=== PATIENT | male | born 1980 | race Two or more races ===

== ENCOUNTER 2019-03-06 10:42 | Emergency (ER) | payer BC ==
[~2019-03-06] VITALS: Ht 182.9 cm; Wt 98.0 kg
[2019-03-06 12:00] LABS: Basophils # (auto) 0.1 uL; Basophils % (auto) 0.5 % (0.0-2.0); Eosinophils # (auto) 0 uL; Eosinophils % (auto) 0.1 % (0.0-7.0); Hematocrit 51.1 % (41.0-53.0); Hemoglobin 17.2 g/dL (13.5-17.5); Lymphocytes # (auto) 1.4 uL; Lymphocytes % (auto) 10.6 % (10.0-50.0); Mean Corpuscular Hemoglobin 31.3 pg (28.0-32.0); Mean Corpuscular Hgb Conc. 33.7 g/dL (32.0-36.0); Mean Corpuscular Volume 93.1 fL (80.0-100.0); Monocytes # (auto) 0.9 uL; Monocytes % (auto) 6.6 % (0.0-12.0); Neutrophils # (auto) 11.2 uL; Neutrophils % (auto) 82.2 % (37.0-80.0); Nucleated Red Blood Cells % 0.1 %; Platelet Count (auto) 360 10^3/uL (140-450); Red Blood Cells 5.48 10^6/uL (4.5-5.90); White Blood Cell 13.6 10^3/uL (4.4-10.8)
[2019-03-06 12:06] LABS: Albumin 4.6 g/dL (3.4-5.0); Calcium 9.5 mg/dL (8.5-10.1); Potassium 4.4 mmol/L (3.5-5.1)
[2019-03-06 12:09] LABS: Total Protein 8.7 g/dL (6.4-8.2)
[2019-03-06] MEDS ORDERED: cloNIDine HCL 0.1 MG TAB PO ONE (12:30)
[2019-03-06] MEDS ORDERED: KETOROLAC TROMETH 60MG/2ML VIAL IM ONE (12:30)
[2019-03-06] MEDS ORDERED: ONDANSETRON ODT 4 MG TAB PO ONE (16:45)
[2019-03-06 18:21] VITALS: BP 134/87
== END 2019-03-06 18:21 | disposition home or self-care (01) ==
LOC: ER 10:42
DX: I10 Essential (primary) hypertension (principal); J40 Bronchitis, not specified as acute or chronic
CPT/HCPCS: 36415; 70450; 71046; 80053; 85025; 96372; 99284; J1885; Q0162

== ENCOUNTER 2020-01-23 12:43 | Inpatient (IN) | payer BC ==
[~2020-01-23] VITALS: Ht 180.3 cm; Wt 91.8 kg
[2020-01-23] MEDS ORDERED: SODIUM CHLORIDE 0.9% 1,000 ML IVB ONE ×2 (13:37→14:38)
[2020-01-23] MEDS ORDERED: KETOROLAC TROMETH 30 MG/ML 1ML VIAL IV ONE (13:45)
[2020-01-23] MEDS ORDERED: ONDANSETRON HCL 4 MG/2 ML VIAL IV ONE (13:45)
[2020-01-23 14:14] LABS: Basophils # (auto) 0.1 10 ^3/uL (0-0.2); Basophils % (auto) 0.3 % (0.0-2.0); Eosinophils # (auto) 0 10 ^3/uL (0-0.8); Eosinophils % (auto) 0.1 % (0.0-7.0); Hemoglobin 16.4 g/dL (13.5-17.5); Lymphocytes # (auto) 1.1 10 ^3/uL (0.4-5.4); Lymphocytes % (auto) 5.8 % (10.0-50.0); Mean Corpuscular Hemoglobin 31.2 pg (28.0-32.0); Mean Corpuscular Hgb Conc. 33.5 g/dL (32.0-36.0); Mean Corpuscular Volume 93.1 fL (80.0-100.0); Monocytes # (auto) 1.2 10 ^3/uL (0-1.3); Monocytes % (auto) 6.2 % (0.0-12.0); Neutrophils # (auto) 17.1 10 ^3/uL (1.6-8.6); Neutrophils % (auto) 87.6 % (37.0-80.0); Platelet Count (auto) 318 10^3/uL (140-450); Red Blood Cells 5.27 10^6/uL (4.5-5.90); White Blood Cell 19.5 10^3/uL (4.4-10.8)
[2020-01-23 14:25] LABS: Urine Bacteria FEW /hpf (None Seen); Urine Blood 3+ /uL (Negative); Urine Mucus FEW (None Seen); Urine Specific Gravity 1.026 (1.001-1.035); Urine WBC 42 /hpf (0 - 3)
[2020-01-23 14:39] LABS: Potassium 3.6 mmol/L (3.5-5.1)
[2020-01-23 14:41] LABS: BUN/Creatinine Ratio 15.4
[2020-01-23 14:44] LABS: Bilirubin, Total 1.5 mg/dL (0.2-1.0); Total Protein 8.4 g/dL (6.4-8.2)
[2020-01-23] MEDS ORDERED: cefTRIAXone 1GM/50ML D5W 50 ML IV ONE (14:45)
[2020-01-23] MEDS ORDERED: MORPHINE SULF INJ 2 MG/ML SYRINGE 1ML IV PRN (18:30)
[2020-01-23] MEDS ORDERED: NITROGLYCERIN 0.4 MG SL TAB SL PRN (18:30)
[2020-01-23 19:47] VITALS: BP 150/94
--- NOTE | 2020-01-23 19:47 | NUR ---
Telemetry admit from ER KELLEN TALLEY admitted to Telemetry unit after SBAR received. Patient oriented to Cindy ash RN, unit, room, bed, and unit policies regarding patient care and visiting hours. Patient now on continuous telemetry monitoring, tele box # 71 and telemetry reading on arrival to unit is SR 85. Patient placed on bedside oxygen, weighed by bed scale and encouraged to call if they need something. All questions and concerns addressed, patient verbalized understanding. Note: Came per wheelchair awake alert oriented x 4, placed in the bed comfortably, vital signs checked.
[2020-01-23 20:00] VITALS: BP 150/94
[2020-01-23 22:00] VITALS: BP 142/90
--- NOTE | 2020-01-23 22:02 | NUR ---
Called/paged Ness Parr. called re:urine analysis positive for U.T.I plus 3 leukocytes. . Waiting for call back. Continue care.
--- NOTE | 2020-01-23 22:11 | NUR ---
returned call Ness Nolasco. returned call, updated on patient status and reason for call, orders received of Rocephin 1gram i.v.p.b daily, and cardiac diet. Continue care.
[2020-01-23] MEDS ORDERED: HYDR-4833 PO (22:42)
[2020-01-24] MEDS ORDERED: hydrALAZINE HCL 20 MG/ML VL IV PRN
[2020-01-24] MEDS ORDERED: SUCRALFATE 1 GM TAB PO ONE
[2020-01-24] MEDS ORDERED: ONDANSETRON HCL 4 MG/2 ML VIAL IV PRN
[2020-01-24] MEDS ORDERED: HYDROcodone-ACET 5/325MG TAB PO PRN
[2020-01-24] MEDS ORDERED: TAMSULOSIN HYDROCHLORIDE 0.4 MG CAP PO ONE
[2020-01-24] MEDS ORDERED: ALUM & MAG HYDROX-SIMETH LIQ(MAALOX) 30 ML PO PRN
[2020-01-24] MEDS ORDERED: LORazepam 0.5 MG TAB PO PRN
[2020-01-24] MEDS ORDERED: ACETAMINOPHEN 325 MG TAB PO PRN
[2020-01-24] MEDS ORDERED: DOCUSATE SOD 100 MG CAP PO PRN
[2020-01-24] MEDS ORDERED: PANTOPRAZOLE 40 MG/10 ML VIAL INJ IV ONE
[2020-01-24] MEDS ORDERED: MORPHINE SULF INJ 2 MG/ML SYRINGE 1ML IV PRN ×2
[2020-01-24] MEDS ORDERED: NITROGLYCERIN 0.4 MG SL TAB SL PRN
[2020-01-24] MEDS: SODIUM CHLORIDE 0.9% 1,000 ML IV SCH ×3 (00:35→20:00)
[2020-01-24 05:19] VITALS: BP 128/77
[2020-01-24 06:03] LABS: Basophils # (auto) 0.1 10 ^3/uL (0-0.2); Basophils % (auto) 0.7 % (0.0-2.0); Eosinophils # (auto) 0.2 10 ^3/uL (0-0.8); Eosinophils % (auto) 2.5 % (0.0-7.0); Hematocrit 43.6 % (41.0-53.0); Hemoglobin 14.7 g/dL (13.5-17.5); Lymphocytes # (auto) 1.8 10 ^3/uL (0.4-5.4); Lymphocytes % (auto) 18.4 % (10.0-50.0); Mean Corpuscular Hemoglobin 31.5 pg (28.0-32.0); Mean Corpuscular Hgb Conc. 33.7 g/dL (32.0-36.0); Mean Corpuscular Volume 93.5 fL (80.0-100.0); Monocytes # (auto) 0.7 10 ^3/uL (0-1.3); Monocytes % (auto) 7.6 % (0.0-12.0); Neutrophils # (auto) 6.8 10 ^3/uL (1.6-8.6); Neutrophils % (auto) 70.8 % (37.0-80.0); Nucleated Red Blood Cells % 0.1 %; Platelet Count (auto) 279 10^3/uL (140-450); Red Blood Cells 4.66 10^6/uL (4.5-5.90); Red Cell Distribution Width 12.8 % (11.8-14.3); White Blood Cell 9.5 10^3/uL (4.4-10.8)
[2020-01-24 06:20] LABS: INR 0.99 (0.9-1.15); Partial Thromboplastin Time 27.1 sec (23.0-31.2)
[2020-01-24 06:29] LABS: Alcohol, Urine < 3.0 mg/dL (0-10); Amphetamine Screen, Urine NEGATIVE (NEGATIVE); Barbiturate Scree,Urine NEGATIVE (NEGATIVE); Benzodiazephine Screen, Urine NEGATIVE (NEGATIVE); Cannabinoid Screen, Urine NEGATIVE (NEGATIVE); Cocaine Screen, Urine NEGATIVE (NEGATIVE); Opiate Scree,Urine NEGATIVE (NEGATIVE); Phencyclidine Screen, Urine NEGATIVE (NEGATIVE)
[2020-01-24 06:39] LABS: Magnesium 2.5 mg/dL (1.6-2.6); Phosphorus 3.1 mg/dL (2.5-4.90)
[2020-01-24] MEDS: SUCRALFATE 1 GM TAB PO SCH ×4 (06:53→21:23)
[2020-01-24 06:59] LABS: Cholesterol 125 mg/dL (< 200); HDL Cholesterol 33 mg/dL (40-59); LDL Cholesterol 77 mg/dL (< 100); Triglycerides 132 mg/dL (< 150)
--- NOTE | 2020-01-24 07:11 | NUR ---
Care report given to Krystyna Pham, patient is resting no distress.
--- NOTE | 2020-01-24 07:45 | NUR ---
Opening Shift Note Assumed care of patient, awake and alert. No S/S of distress/SOB or pain. Instructed on POC and to call for assist PRN, will continue to monitor for changes Q1hr and PRN.
[2020-01-24 08:34] VITALS: BP 124/74
[2020-01-24] MEDS ORDERED: cefTRIAXone 1GM/50ML D5W 50 ML IV SCH (09:00)
[2020-01-24] MEDS: PANTOPRAZOLE 40 MG/10 ML VIAL INJ IV SCH (09:37)
[2020-01-24] MEDS: CEFTRIAXONE SODIUM 2 GM in D5W 5% 50 ML IV SCH (09:37)
[2020-01-24] MEDS: ENOXAPARIN SOD 40 MG/0.4 ML SYRINGE SC SCH (09:37)
[2020-01-24 13:00] VITALS: BP 128/82
[2020-01-24 17:00] VITALS: BP 137/83
[2020-01-24] MEDS ORDERED: TAMSULOSIN HYDROCHLORIDE 0.4 MG CAP PO SCH (18:00)
--- NOTE | 2020-01-24 18:13 | NUR ---
PT REQUEST TO HAVE IV FLUIDS OFF SO HE CAN WALK AROUND
--- NOTE | 2020-01-24 20:00 | NUR ---
Opening Shift Note Assumed care of patient, awake and alert. No S/S of distress/SOB or pain. Instructed on POC and to call for assist PRN, will continue to monitor for changes Q1hr and PRN.Patient said the day nurse did not give his antibiotic, told him that r.n. will double check the order.
--- NOTE | 2020-01-24 20:40 | NUR ---
Called outside pharmacy and informed that Rocephin for today not given by the day nurse ,so pharmacy will put to give the Rocephin 2 gram I.V.P.B. x one for today.
[2020-01-24] MEDS ORDERED: CEFTRIAXONE SODIUM 2 GM in D5W 5% 50 ML IV ONE (20:49)
[2020-01-24 22:00] VITALS: BP 129/77
[2020-01-25 05:00] VITALS: BP 114/70
[2020-01-25] MEDS: SUCRALFATE 1 GM TAB PO SCH ×2 (06:06→11:30)
[2020-01-25] MEDS: SODIUM CHLORIDE 0.9% 1,000 ML IV SCH (06:06)
[2020-01-25 06:36] LABS: Basophils # (auto) 0.1 10 ^3/uL (0-0.2); Basophils % (auto) 0.6 % (0.0-2.0); Eosinophils # (auto) 0.3 10 ^3/uL (0-0.8); Eosinophils % (auto) 3.5 % (0.0-7.0); Hematocrit 44.4 % (41.0-53.0); Lymphocytes % (auto) 23.8 % (10.0-50.0); Mean Corpuscular Hemoglobin 31.3 pg (28.0-32.0); Mean Corpuscular Hgb Conc. 33.7 g/dL (32.0-36.0); Monocytes # (auto) 0.7 10 ^3/uL (0-1.3); Monocytes % (auto) 8.2 % (0.0-12.0); Neutrophils # (auto) 5.5 10 ^3/uL (1.6-8.6); Neutrophils % (auto) 63.9 % (37.0-80.0); Nucleated Red Blood Cells % 0.1 %; Platelet Count (auto) 290 10^3/uL (140-450); Red Blood Cells 4.77 10^6/uL (4.5-5.90); Red Cell Distribution Width 12.5 % (11.8-14.3); White Blood Cell 8.6 10^3/uL (4.4-10.8)
[2020-01-25 06:55] LABS: INR 0.99 (0.9-1.15); Partial Thromboplastin Time 26.5 sec (23.0-31.2)
[2020-01-25 07:06] LABS: Potassium 3.7 mmol/L (3.5-5.1)
[2020-01-25 07:17] LABS: Albumin 3.2 g/dL (3.4-5.0); BUN/Creatinine Ratio 12.7; Bilirubin, Total 0.5 mg/dL (0.2-1.0); Calcium 8.2 mg/dL (8.5-10.1); Magnesium 2.5 mg/dL (1.6-2.6); Total Protein 6.8 g/dL (6.4-8.2)
--- NOTE | 2020-01-25 07:50 | NUR ---
Care report given to Krystyna Mueller, patient is resting no distress, patient is waiting for Dr. Skaggs to order for urology consult, no order yet.
[2020-01-25 09:00] VITALS: BP 123/76
[2020-01-25] MEDS: ENOXAPARIN SOD 40 MG/0.4 ML SYRINGE SC SCH (09:29)
[2020-01-25] MEDS: PANTOPRAZOLE 40 MG/10 ML VIAL INJ IV SCH (09:29)
[2020-01-25] MEDS: CEFTRIAXONE SODIUM 2 GM in D5W 5% 50 ML IV SCH (10:23)
[2020-01-25 12:28] VITALS: BP 123/76
[2020-01-25 13:00] VITALS: BP 140/79
--- NOTE | 2020-01-25 16:00 | NUR ---
pt discharged home. iv and tele box removed. verbalized understanding of discharge instructions. all appropriate papers signed. pt discharged home .
== END 2020-01-25 15:45 | disposition home or self-care (01) | DRG 872 ==
LOC: ER 12:43 → TELE 12:44 → TELE-WESTW 19:47
PROVIDERS: ADMIT Hospitalist; ATTEND Internal Medicine
DX: A41.9 Sepsis, unspecified organism (principal); N13.6 Pyonephrosis; N17.9 Acute kidney failure, unspecified; E66.9 Obesity, unspecified; I12.9 Hypertensive chronic kidney disease with stage 1 through stage 4 chronic kidney disease, or unspecified chronic kidney disease; K21.0 Gastro-esophageal reflux disease with esophagitis; K29.70 Gastritis, unspecified, without bleeding; K40.20 Bilateral inguinal hernia, without obstruction or gangrene, not specified as recurrent; K42.9 Umbilical hernia without obstruction or gangrene; K76.0 Fatty (change of) liver, not elsewhere classified; N18.9 Chronic kidney disease, unspecified; K30 Functional dyspepsia; Z68.28 Body mass index [BMI] 28.0-28.9, adult; Z82.49 Family history of ischemic heart disease and other diseases of the circulatory system
CPT/HCPCS: 36415; 74176; 80053; 80061; 80307; 81001; 82150; 83036; 83605; 83690; 83735; 84100; 84484; 85025; 85610; 85730; 86160; 87040; 87081; 87086; 96365; 96372; 96375; C9113; G0378; J0696; J1885; J2405; J7060